=== PATIENT | female | born 1945 | race Caucasian/White ===

== ENCOUNTER 2024-05-30 06:05 | Emergency (ER) | payer MEDICARE, MEDICAID, SELFPAY ==
[2024-05-30 06:12] VITALS: BP 177/113; PULSE 82; RESP 19; TEMP 36.7; O2SAT 96; BMI 29.9
--- NOTE | 2024-05-30 07:20 | PD.EDABDPN ---
ED Abdominal Pain RME/HPI General Chief Complaint: General Adult/Misc Complain Stated complaint: NOT HAVING BOWEL MOVEMENT X 4 DAYS Arrival date/time: 05/30/24 06:05 RME / HPI RME / HPI narrative: 78 year old female with history of seizures, hypertension, constipation, rectal prolapse presents to the ED brought in by caregiver from [employer] for evaluation of abdominal pain and constipation today. Per caregiver, patient last had a bowel movement 4 days ago. States the patient was given an enema and magnesium citrate yesterday evening without improvement. This morning while assessing the patient, noted her abdomen to feel hard on palpation and was complaining of pain all over abdomen and to her rectum. Patient reports she was passing gas yesterday, none today. Denies fevers, chills, cough, vomiting, or urinary symptoms. Related Data Home Medications ?Medication ?Instructions ?Recorded ?Confirmed Buspirone * (BUSPAR *) 15 mg PO QDAY #0 tabs 03/20/17 Calcium Carbonate * (CALTRATE *) 600 mg PO BID #0 tabs 03/20/17 hydrochlorothiazide 12.5 mg 12.5 mg PO QAM #0 caps 03/20/17 capsule (Microzide) lisinopril 10 mg tablet 10 mg PO QDAY #0 tabs 03/20/17 meloxicam 15 mg tablet (Mobic) 15 mg PO HS #0 tabs 03/20/17 montelukast 10 mg tablet 10 mg PO HS #0 tabs 03/20/17 (Singulair) phenobarbital 32.4 mg tablet 32.4 mg PO BID #0 tabs 03/20/17 Amitriptyline Hcl * (ELAVIL *) 50 mg PO HS #0 tabs 08/04/17 CRANBERRY CONC/ASCORBIC ACID 4,200 ##0 08/04/17 (CRANBERRY + VIT C SOFTGEL) Phenytoin Sodium Extended * 100 mg PO TID #0 caps 08/04/17 (DILANTIN *) levetiracetam 500 mg tablet 1,500 mg PO BID #0 tabs 08/04/17 (Keppra) linaclotide 145 mcg capsule ##0 08/04/17 (Linzess) Previous Rx's ?Medication ?Instructions ?Recorded hydrocodone 5 mg-acetaminophen 325 1 tab PO TID #10 tabs 01/29/18 mg tablet ([place]) docusate sodium 100 mg capsule 100 mg PO BID #30 caps 05/29/21 (Colace) glycerin (adult) 1 supp OR QDAY PRN constipation 12/04/22 #25 ea polyethylene glycol 3350 17 gram 17 g PO QDAY #100 ea 12/04/22 oral powder packet (Miralax) psyllium husk 3.4 gram/5.4 gram 1 tbsp PO QDAY #660 grams 12/04/22 oral powder (Metamucil) acetaminophen 325 mg tablet (Pain 650 mg (2 x 325 mg) PO QID PRN 09/04/23 Relief (acetaminophen)) fever or pain #60 tabs Allergies Allergy/AdvReac Type Severity Reaction Status Date / Time No Known Allergies Allergy Verified 03/28/24 10:40 Review of Systems Review of Systems Narrative Review of Systems: Gen: No fever, no chills, no weight loss EYES: No discharge, no visual changes, no pain HEENT: No ear pain, no congestion, no sore throat PULM: no shortness of breath, no cough, no congestion CV: No chest pain, no dyspnea on exertion, no palpitations, no chest tightness GI: No nausea, no vomiting, no diarrhea, + pain, + constipation x4 days, +pain to rectum : No frequency, no urgency,? no dysuria Musc/skel: No joint pain, no back pain Skin: No rash, no ecchymosis, no lesions Psyc: No hallucinations, no depression Heme/Lymph: No easy bleeding or bruising tendencies Neuro: No weakness, no headache Past Medical History Past Medical History NEUROLOGIC: Positive Neurological Disorders, Seizures and Cerebral Palsy CARDIAC: Positive Cardiac Disorders and Hypertension; Negative Congestive Heart Failure RESPIRATORY: Negative Chronic Obstructive Pulmonary Disease (COPD) GENITOURINARY: Negative Renal Disease ENDOCRINE: Negative Diabetes Mellitus Type 1 or Diabetes Mellitus Type 2 PSYCHO/SOCIAL: Positive Anxiety Social History SMOKING STATUS: Never smoker SUBSTANCE USE: does not use ED Exam Narrative Physical exam: GENERAL APPEARANCE: AxOx4, no obvious distress, nontoxic appearing HEENT: NC, AT. MMM. EOMI, clear conjunctiva, oropharynx clear. NECK: Supple without lymphadenopathy. No stiffness or restricted ROM. HEART: Normal rate and regular rhythm, normal S1/S1, no m/r/g LUNGS: CTAB, moving air well. No crackles or wheezes are heard. ABDOMEN: Soft, nontender, nondistended with good bowel sounds heard. : Exam performed in presence of female franchise field consultant. There are multiple external hemorrhoids, no rectal prolapse, mild fecal impaction that was disimpacted. BACK: No midline C/T/L spine pain or deformity, No CVAT, no obvious deformity. EXTREMITIES: Without cyanosis, clubbing or edema. 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 Alert and oriented, moving all 4 extremities. Skin: Warm and dry without any rash. Course Quality Measures none Orders Category Date Time Status CT Screening NOW Care 05/30/24 12:11 Completed Enema Administration NOW Care 05/30/24 07:[address] abdomen pelvis wo con Stat Exams 05/30/24 13:05 Completed Glycerin Supp Adult Med 05/30/24 09:35 Discontinued 1 each OR X1 ONE Magnesium Citrate Liqd [Citrate of Magnesia Liqd] Med 05/30/24 09:35 Discontinued 300 ml PO X1 ONE Reevaluation(s) Reevaluation #1: RN reported patient received an enema ~ 45 minutes ago and has not had a bowel movement. Will attempt a magnesium citrate, water, glycerin, mineral oil enema. Time: 09:28 Reevaluation #2: Patient has passed a additional stool. Caregiver at bedside is demanding patient have a CT scan of abdomen. I discussed the physical exam findings are suggestive of stool impaction and is not typically something that at this point we would require CT scan to diagnose. Rate Reviewer is threatening that if patient t does not get a CT scan today they will return later. Time: 12:05 Vital Signs Vital signs: Vital Signs Temperature 98.1 F 05/30/24 06:12 Pulse Rate 82 05/30/24 06:12 Respiratory Rate 19 05/30/24 06:12 Blood Pressure 177/113 H 05/30/24 06:12 Pulse Oximetry (%) 96 05/30/24 06:12 Oxygen Delivery Method Room Air 05/30/24 06:12 Pulse ox is 96% on room air which is adequate. Abdominal Pain MDM MDM Narrative MDM Narrative:: Ms. Singh presents to the emergency department with symptoms and physical exam this consistent with fecal impaction. On exam she did have fecal disimpaction. We did have additional stool output after enema. There seems to be a misunderstanding with the diabetes solutions specialist she is demanding a CT scan with the belief that CT scans will diagnose the fecal impaction. Caretakers threatening to bring her back if she does not receive a CT scan despite explaining to her that the disimpaction is the diagnostics for her impaction. Caretakers unsatisfied with this information. CT scan was done which shows no fecal impaction consistent with my disimpaction here in the emergency department. Patient was discharged with her diabetes solutions specialist and improved in stable condition. I, Joya Martinez, am scribing for and in the presence of Dr. Jauregui. Patient data External records reviewed:: [facility] previous records (I reviewed ED visit on 03/28/2024) and [facility] records (I reviewed custodial records from [facility] ) Clinical information provided by:: patient and diabetes solutions specialist Social determinants that could affect healthcare access:: housing (custodial resident ) Patient has the following chronic illnesses:: seizures, hypertension, constipation, rectal prolapse How is presenting disease/condition affected by chronic disease/condition?: exacerbated by Evaluation data The following diagnostics were reviewed and interpreted by me:: radiology exam(s) Lab and/or radiology exams considered but not ordered:: None Interpretation Summary: As per narrative Medications / Prescriptions Medications or Prescriptions considered but not ordered:: None Medication administrations:: Medication Administration History Discontinued Medications Glycerin (Glycerin, Adult 1 Ea Supp) 1 each OR X1 ONE Stop: 05/30/24 09:36 Last Admin: 05/30/24 10:03 Dose: 1 each Documented By: TM Magnesium Citrate (Magnesium Citrate 300 Ml Btl) 300 ml PO X1 ONE Stop: 05/30/24 09:36 Last Admin: 05/30/24 10:03 Dose: 300 ml Documented By: TM See above Consultations Consultation(s) initiated? (list below): No Diagnosis Differential diagnosis abdominal pain: abdominal pain, constipation and diverticulitis Most likely diagnosis given after review of the tests above:: See below Admission Indicated Admission indicated?: not indicated Admission Request Was there a request for admission?: No Disposition Plan Disposition Plan: Discharge Discharge Attestation Discharge Attestation: The patient and all family members were given an opportunity to ask questions and understood the discharge instructions. Discharge instructions specifically effects, indications for sooner follow up or return to the emergency department, and the expected course of current diagnosis. Patient condition: Stable Discharge Plan Plan Patient Disposition: HOME (Self Care) Prescriptions/Referrals Prescriptions/Med Rec: No Action Calcium Carbonate * (CALTRATE *) 600 MG tablet 600 mg PO BID Qty: 0 meloxicam [Mobic] 15 MG tablet 15 mg PO HS Qty: 0 lisinopril 10 MG tablet 10 mg PO QDAY Qty: 0 hydrochlorothiazide [Microzide] 12.5 MG capsule 12.5 mg PO QAM Qty: 0 montelukast [Singulair] 10 MG tablet 10 mg PO HS Qty: 0 phenobarbital 32.4 MG tablet 32.4 mg PO BID Qty: 0 Buspirone * (BUSPAR *) 15 MG tablet 15 mg PO QDAY Qty: 0 Amitriptyline Hcl * (ELAVIL *) 50 MG tablet 50 mg PO HS Qty: 0 levetiracetam [Keppra] 500 MG tablet 1,500 mg PO BID Qty: 0 linaclotide [Linzess] 145 MCG capsule Qty: 0 CRANBERRY CONC/ASCORBIC ACID (CRANBERRY + VIT C SOFTGEL) 1 EACH capsule 4,200 Qty: 0 Phenytoin Sodium Extended * (DILANTIN *) 100 MG capsule 100 mg PO TID Qty: 0 Patient Comments: FOR SEIZURE CONTROL hydrocodone-acetaminophen [[place]] 5-325 mg tablet 1 tab PO TID MDD 3 Qty: 10 0RF docusate sodium [Colace] 100 mg capsule 100 mg PO BID Qty: 30 0RF polyethylene glycol 3350 [Miralax] 17 gram powder in packet 17 g PO QDAY Qty: 100 0RF Metamucil 3.4 gram/5.4 gram powder 1 tbsp PO QDAY Qty: 660 0RF Rx Instructions: mix into at least 8 oz of water or juice before administering glycerin (adult) Suppository 1 supp OR QDAY PRN (Reason: constipation) Qty: 25 0RF acetaminophen [Pain Relief (acetaminophen)] 325 mg tablet 650 mg PO QID PRN (Reason: fever or pain) Qty: 60 0RF Referrals: Zoë Lu FNP [Primary Care Provider] - In 1 week Problem List Clinical Impression: Acute constipation Patient/Caregiver Discharge Instructions Education Materials: Eating a High-Fiber Diet, ED Constipation (Adult), ED Fecal Impaction, Treated Additional Instructions: Your fecal impaction was cleared during our as diagnosed during our examination and fecal disimpaction. CT scan shows no significant stool remaining. You can follow-up with your primary care doctor in 2 to 3 days for recheck. Print Language: Mohawk Stand Alone Forms: [facility]na Award Info., Patient Portal Info Letter
[2024-05-30 08:10] VITALS: BP 128/87; PULSE 72; RESP 20; TEMP 36.9; O2SAT 95
[2024-05-30] MEDS: GLYCERIN, ADULT 1 EA SUPP 1 EACH PR (10:03)
[2024-05-30] MEDS: MAGNESIUM CITRATE 300 ML BTL PO (10:03)
--- NOTE | 2024-05-30 12:52 | PC.NURSE ---
PT HAS BEEN SITTING ON BEDPAN FOR A WHILE. REMOVED NOW AND IMPRINT OF BEDPAN ON PT'S BUTTOCKS. LARGE LIQUID BM. PT CLEANED AND LINEN CHANGED
--- NOTE | 2024-05-30 13:05 | XR_ITS ---
Examination: CT abdomen and pelvis without contrast. Coronal 3-D reconstructions. Sagittal 2-D reconstructions. Date and time of exam:May 30, 2024 1332 hours INDICATIONS: Constipation today COMPARISON: December 04, 2022 CTDI: vol (mGy): 8.74 DLP: (mGycm): 488 Technique: Axial images of the abdomen have been obtained, 3 mm slice thickness Intravenous contrast material has not been administered. Low dose protocols were performed. One or more of the following dose reduction techniques were used; automated exposure control, adjustment of the mA and/or KV according to patient size, use of iterative reconstruction technique. Findings: No focal liver or splenic lesions No gallstones No pancreatic or adrenal mass No renal or ureteral calculi, no hydronephrosis Aortic calcification no aneurysm dilatation 20 mm fat-containing umbilical hernia Normal appendix No bowel obstruction Moderately distended urinary bladder Moderate osteopenia Moderate degenerative disc disease L4-L5 Advanced narrowing left hip joint Prominent thickening of the rectal wall, axial image 205 IMPRESSION: Prominent abnormal thickening of the rectal wall, rectal carcinoma not excluded, recommend direct inspection
[2024-05-30 13:14] VITALS: BP 162/84; PULSE 75; RESP 16; TEMP 36.8; O2SAT 95
[2024-05-30 14:27] VITALS: BP 139/76; PULSE 72; RESP 16; TEMP 36.8; O2SAT 94
== END 2024-05-30 15:27 | disposition home or self-care (01) ==
PROVIDERS: Emergency Provider Emergency Medicine; PCP Registered Nurse Community Health
DX: K59.09 Other constipation (principal)
CPT/HCPCS: 74176; 99284; A9270

== ENCOUNTER → 2024-10-10 | Outpatient (CLI) | payer MEDICARE, MEDICAID, SELFPAY ==
--- NOTE | 2024-10-10 | XR_ITS ---
Examination:Right hip AP, lateral, AP pelvis 3 views Technique: Hip AP lateral, AP pelvis, 3 views Exam date and time:October 10, 2024 1212 hours INDICATIONS: Patient fell today with injury of the right hip, right hip pain. FINDINGS: No acute right hip fracture or dislocation Left hip bones of the pelvis intact IMPRESSION: No acute hip or pelvic fracture.
--- NOTE | 2024-10-10 | XR_ITS ---
Examination: Right femur 2 views TECHNIQUE: Right femur 2 views Examination type: October 10, 2024 1219 hours INDICATIONS: Patient fell today with injury to the femur, femur pain. FINDINGS: No acute hip or femoral shaft fracture IMPRESSION: Negative for fracture
== END | disposition home or self-care (01) ==
PROVIDERS: PCP Registered Nurse Community Health; Referring Provider Registered Nurse Community Health; Visit Provider Registered Nurse Community Health
DX: S79.911A Unspecified injury of right hip, initial encounter (principal); S79.921A Unspecified injury of right thigh, initial encounter; W19.XXXA Unspecified fall, initial encounter
CPT/HCPCS: 73502; 73552

== ENCOUNTER → 2025-01-11 | Outpatient (CLI) | payer MEDICARE, MEDICAID, SELFPAY ==
--- NOTE | 2025-01-11 | XR_ITS ---
Examination: CT chest with intravenous contrast 2-D sagittal and coronal reconstructions Exam date and time: January 11, 2025 1116 hours INDICATIONS: Coughing congestion 2 months CTDI:vol (mGy) 8.77 DLP: (mGycm) 298 Technique: Multiple axial sections of the thorax have been obtained. Sections have been obtained, 3 mm slice thickness. Mediastinal and lung density settings have been obtained. Intravenous contrast administered, 60 cc [id number]. 2-D sagittal, coronal images obtained. Low dose protocols were performed. One or more of the following dose reduction techniques were used; automated exposure control, adjustment of the mA and/or KV according to patient size, use of iterative reconstruction technique. Findings: 8mm right thyroid nodule No thoracic degenerative aneurysm dilatation or dissection Pulmonary artery segments are not enlarged No pulmonary artery emboli Mild enlargement left atrium Mitral valvular calcification No paratracheal tracheobronchial or bronchopulmonary adenopathy No lobar pneumonia or pulmonary edema 2 mm area of enhancement in the upper right lobe of the liver No biliary tract dilatation Spleen not enlarged No gallstones noted No pancreatic mass Moderate osteopenia IMPRESSION: No mediastinal lymphadenopathy No pneumonia, pulmonary edema or pleural disease 8mm right thyroid nodule
== END | disposition home or self-care (01) ==
PROVIDERS: PCP Registered Nurse Community Health; Referring Provider Registered Nurse Community Health; Visit Provider Registered Nurse Community Health
DX: E04.1 Nontoxic single thyroid nodule (principal); I50.9 Heart failure, unspecified; I51.7 Cardiomegaly; J18.9 Pneumonia, unspecified organism; J44.9 Chronic obstructive pulmonary disease, unspecified
CPT/HCPCS: 71260; A4649; Q9967

== ENCOUNTER 2025-04-10 09:37 | Emergency (ER) | payer MEDICARE, MEDICAID, SELFPAY ==
--- NOTE | 2025-04-10 10:32 | XR_ITS ---
Examination: CT cervical spine without contrast 2-D sagittal reconstructions 2-D coronal reconstructions 3-D reconstructions. Exam date and time:April 10, 2025, 1110 hours, comparison September 04, 2023 INDICATIONS: Ground-level fall today with injury to the neck, neck pain CTDI:vol (mGy) 14.9 DLP: (mGycm) 332 Technique: Multiple 2 mm axial sections of the cervical spine have been obtained. The coronal and sagittal reconstructions have been obtained. 3-D reconstructions have been obtained. Low dose protocols were performed. One or more of the following dose reduction techniques were used; automated exposure control, adjustment of the mA and/or KV according to patient size, use of iterative reconstruction technique. Findings: Axial sections demonstrate intact base of the skull. C1 exhibit satisfactory relationship to the odontoid. No acute cervical vertebral body fracture seen. Alignment posterior spinous processes satisfactory. Advanced degenerative disc disease C4-C5, C5-C6, C6-C7 Impression: No acute cervical fracture.
--- NOTE | 2025-04-10 10:32 | XR_ITS ---
Examination: CT brain head without contrast. 2-D sagittal coronal reconstructions Date and time of exam:April 10, 2025, 1110 hours, comparison 03/28/2024 INDICATIONS: Ground-level fall today with injury to head, head pain neck pain CTDI: vol (mGy):50.3 DLP: (mGycm):1056 Technique: Multiple CT axial sections of the brain have been obtained, 5 mm slice thickness. Contrast has not been administered. 2-D sagittal, coronal reconstructions have been obtained Low dose protocols were performed. One or more of the following dose reduction techniques were used; automated exposure control, adjustment of the mA and/or KV according to patient size, use of iterative reconstruction technique. Findings: No significant ventricular enlargement. Encephalomalacia left parietal lobe Intra-axial or extra-axial hemorrhage density is not seen. No mass effect or midline shift Basal cisterns are not remarkable. Fourth ventricle is midline. Cranial vault intact. Impression: Negative for acute hemorrhage, mass effect or midline shift
--- NOTE | 2025-04-10 10:35 | PD.EDRME ---
Rapid Medical Screening Exam RME Arrival date/time: 04/10/25 09:37 79-year-old female with a history of hypertension presents to the emergency room with a chief complaint of a headache and a laceration to her scalp after a ground-level fall that occurred while she was trying to use the restroom. I have greeted and performed a focused initial assessment of this patient. A comprehensive ED assessment and evaluation of the patient, analysis of all test results, and completion of the medical decision making process will be conducted by additional ED providers. Chief Complaint: Fall Time Seen by Provider: 04/10/25 10:24 Vital signs reviewed by provider: Yes
[2025-04-10 10:41] VITALS: BP 156/75; PULSE 53; RESP 18; TEMP 36.6; O2SAT 99; BMI 27.3
--- NOTE | 2025-04-10 13:25 | EDNOTE_ITS ---
<Statement entered by Eladia Pruett MD - 04/11/25 16:04> As co-signing physician, I was present and available for consult prn. I concur with the plan and care as documented by the midlevel provider. ED General RME/HPI General Chief complaint: Fall Stated complaint: FALL HITTING BACK OF HEAD ON STALL WALL, HEADACHE Time Seen by Provider: 04/10/25 10:24 Arrival date/time: 04/10/25 09:37 CC: Head laceration scalp laceration HPI patient fell in the stall, while being assisted with the restroom. The patient is chaperoned by healthcare providers for dementia. The patient was being assisted into the stall, grabbed the railing and lost her balance falling striking the back of her head on the ground. Staff report no LOC or ALOC. Patient is awake alert baseline per the care provider while waiting in the waiting room. Care provider reports that tetanus is up-to-date. RME / HPI RME / HPI narrative: 04/10/25 09:37 79-year-old female with a history of hypertension presents to the emergency room with a chief complaint of a headache and a laceration to her scalp after a ground-level fall that occurred while she was trying to use the restroom. I have greeted and performed a focused initial assessment of this patient. A comprehensive ED assessment and evaluation of the patient, analysis of all test results, and completion of the medical decision making process will be conducted by additional ED providers. Related Data Home Medications ?Medication ?Instructions ?Recorded ?Confirmed Buspirone * (BUSPAR *) 15 mg PO QDAY #0 tabs Calcium Carbonate * (CALTRATE *) 600 mg PO BID #0 tabs 03/20/17 hydrochlorothiazide 12.5 mg 12.5 mg PO QAM #0 caps capsule (Microzide) lisinopril 10 mg tablet 10 mg PO QDAY #0 tabs meloxicam 15 mg tablet (Mobic) 15 mg PO HS #0 tabs montelukast 10 mg tablet 10 mg PO HS #0 tabs 03/20/17 (Singulair) phenobarbital 32.4 mg tablet 32.4 mg PO BID #0 tabs Amitriptyline Hcl * (ELAVIL *) 50 mg PO HS #0 tabs CRANBERRY CONC/ASCORBIC ACID 4,200 ##0 08/04/17 (CRANBERRY + VIT C SOFTGEL) Phenytoin Sodium Extended * 100 mg PO TID #0 caps 07/08 (DILANTIN *) levetiracetam 500 mg tablet 1,500 mg PO BID #0 tabs (Keppra) linaclotide 145 mcg capsule ##0 08/04/17 (Linzess) Previous Rx's ?Medication ?Instructions ?Recorded hydrocodone 5 mg-acetaminophen 325 1 tab PO TID #10 ta bs 01/29/18 mg tablet ([place]) docusate sodium 100 mg capsule 100 mg PO BID #30 caps 05/29/21 (Colace) glycerin (adult) 1 supp ME QDAY PRN constipat ion 12/04/22 #25 ea polyethylene glycol 3350 17 gram 17 g PO QDAY #100 ea 12/04/22 oral powder packet (Miralax) psyllium husk 3.4 gram/5.4 gram 1 tbsp PO QDAY #660 gr ams 12/04/22 oral powder (Metamucil) acetaminophen 325 mg tablet (Pain 650 mg (2 x 325 mg) PO QID PRN 09/04/23 Relief (acetaminophen)) fever or pain #60 tabs ibuprofen 600 mg tablet 600 mg PO Q8H PRN pain #20 t abs 04/10/25 Allergies Allergy/AdvReac Type Severity Reaction Status Date / Time No Known Allergies Allergy Verified 04/10/25 09:42 Review of Systems Review of Systems ROS Unobtainable: unobtainable due to mental status Past Medical History Past Medical History NEUROLOGIC: Positive Neurological Disorders, Seizures and Cerebral Palsy CARDIAC: Positive Cardiac Disorders and Hypertension; Negative Congestive Heart Failure RESPIRATORY: Negative Chronic Obstructive Pulmonary Disease (COPD) or Asthma GENITOURINARY: Negative Renal Disease ENDOCRINE: Negative Diabetes Mellitus Type 1 or Diabetes Mellitus Type 2 HEMATOLOGIC: Negative Sickle Cell Disease PSYCHO/SOCIAL: Positive Anxiety Social History SMOKING STATUS: Never smoker SUBSTANCE USE: does not use ED Exam Narrative Physical exam: [General: Appears not in any acute distress note: Assessed in a wheelchair. Head normocephalic HEENT: Within acceptable limits Neck is supple nontender Chest equal chest rise nontender to palpation Respiratory: Clear to auscultation no wheezes crackles or rubs CV: Rate rhythm is regular no murmurs rubs or clicks Abdomen is distended secondary to body habitus soft nontender no masses positive bowel sounds all 4 quadrants Back: No CVA tenderness no spinous process tenderness from cervical spine thoracic and lumbar spine Skin: 2 cm full-thickness scalp laceration to the occiput. No active bleeding. Otherwise skin is intact no petechiae rash induration ulceration or crepitus Extremities: Moving all extremity against resistance cap refill less than 2 seconds neurosensory intact Neuro: Awake alert oriented X1, baseline per care provider. Course Quality Measures none Orders Category Date Time Status Wound Care X1 Care 04/10/25 10:[address] cervical spine wo con Stat Exams 04/10/25 10:[address] head/brain wo con Stat Exams 04/10/25 10:32 Completed Vital Signs Vital signs: Vital Signs Temperature 98 F 04/10/25 10:41 Pulse Rate 53 L 04/10/25 10:41 Respiratory Rate 18 04/10/25 10:41 Blood Pressure 156/75 H 04/10/25 10:41 Pulse Oximetry (%) 99 04/10/25 10:41 Oxygen Delivery Method Room Air 04/10/25 10:41 PROCEDURES: Procedure Comment Laceration repair: Site cleaned, site probed no foreign body was found site approximated with 3 lizzeth with good approximation without complication patient tolerated the procedure well. Discharge Plan Plan Patient Disposition: HOME (Self Care) Patient condition on transfer: Stable Prescriptions/Referrals Prescriptions/Med Rec: New ibuprofen 600 mg tablet 600 mg PO Q8H PRN (Reason: pain) Qty: 20 0RF No Action Calcium Carbonate * (CALTRATE *) 600 MG tablet 600 mg PO BID Qty: 0 meloxicam [Mobic] 15 MG tablet 15 mg PO HS Qty: 0 lisinopril 10 MG tablet 10 mg PO QDAY Qty: 0 hydrochlorothiazide [Microzide] 12.5 MG capsule 12.5 mg PO QAM Qty: 0 montelukast [Singulair] 10 MG tablet 10 mg PO HS Qty: 0 phenobarbital 32.4 MG tablet 32.4 mg PO BID Qty: 0 Buspirone * (BUSPAR *) 15 MG tablet 15 mg PO QDAY Qty: 0 Amitriptyline Hcl * (ELAVIL *) 50 MG tablet 50 mg PO HS Qty: 0 levetiracetam [Keppra] 500 MG tablet 1,500 mg PO BID Qty: 0 linaclotide [Linzess] 145 MCG capsule Qty: 0 CRANBERRY CONC/ASCORBIC ACID (CRANBERRY + VIT C SOFTGEL) 1 EACH capsule 4,200 Qty: 0 Phenytoin Sodium Extended * (DILANTIN *) 100 MG capsule 100 mg PO TID Qty: 0 Patient Comments: FOR SEIZURE CONTROL hydrocodone-acetaminophen [[place]] 5-325 mg tablet 1 tab PO TID MDD 3 Qty: 10 0RF docusate sodium [Colace] 100 mg capsule 100 mg PO BID Qty: 30 0RF polyethylene glycol 3350 [Miralax] 17 gram powder in packet 17 g PO QDAY Qty: 100 0RF Metamucil 3.4 gram/5.4 gram powder 1 tbsp PO QDAY Qty: 660 0RF Rx Instructions: mix into at least 8 oz of water or juice before administering glycerin (adult) Suppository 1 supp ME QDAY PRN (Reason: constipation) Qty: 25 0RF acetaminophen [Pain Relief (acetaminophen)] 325 mg tablet 650 mg PO QID PRN (Reason: fever or pain) Qty: 60 0RF Referrals: Zoë Lu FNP [Primary Care Provider] - In 1 week Problem List Clinical Impression: Fall, Laceration of scalp Patient/Caregiver Discharge Instructions Education Materials: ED Fall with Uncertain Cause, ED Laceration: All Closures Print Language: Faroese Stand Alone Forms: Ratna Award Info., Patient Portal Info Letter PA/CHANGE DIRECTOR Supervising Physician PA/CHANGE DIRECTOR Supervising Physician: Travis Shultz ENP MDM Clinical Information Provided by: patient and guardian Medical Records reviewed [facility] Meds/Rx considered, not ordered None Labs/Rad/Tests considered, not ordered None Chronic Illness/Social Conditions Explain: Dementia Labs Labs: none Imaging Imaging interpretation: interpreted by me Imaging Interpretation(s): CT head and C-spine as interpreted me read by radiology as negative for any acute finding. Diagnosis Differential Diagnosis ED Complaint MDM: Closed head injury neck fracture scalp abrasion
[2025-04-10 14:05] VITALS: BP 142/72; PULSE 61; RESP 16; TEMP 36.9; O2SAT 96
== END 2025-04-10 14:11 | disposition home or self-care (01) ==
PROVIDERS: Emergency Provider Emergency Medicine; PCP Registered Nurse Community Health
DX: S01.01XA Laceration without foreign body of scalp, initial encounter (principal); S19.9XXA Unspecified injury of neck, initial encounter; W01.198A Fall on same level from slipping, tripping and stumbling with subsequent striking against other object, initial encounter; Y93.89 Activity, other specified; Y92.002 Bathroom of unspecified non-institutional (private) residence as the place of occurrence of the external cause
CPT/HCPCS: 12001; 70450; 72125; 99284